=== PATIENT | male | born 2000 | race Two or more races ===

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

== ENCOUNTER 2021-08-14 22:54 | Emergency (ER) | payer MEDICAID, OTHER ==
[~2021-08-14] VITALS: Ht 172.7 cm; Wt 59.0 kg
[2021-08-15] MEDS ORDERED: HYDROcodone-ACET 5/325MG TAB PO ONE (01:00)
[2021-08-15] MEDS ORDERED: IBUPROFEN 400 MG TAB PO ONE (01:00)
[2021-08-15 02:30] VITALS: BP 109/68
== END 2021-08-15 03:15 | disposition home or self-care (01) ==
LOC: ER 22:54
DX: S52.502A Unspecified fracture of the lower end of left radius, initial encounter for closed fracture (principal); V00.131A Fall from skateboard, initial encounter; Y93.51 Activity, roller skating (inline) and skateboarding; Y92.89 Other specified places as the place of occurrence of the external cause; Y99.8 Other external cause status
CPT/HCPCS: 73110